=== PATIENT | female | born 1965 | race Caucasian/White ===

== ENCOUNTER → 2019-04-16 | Day surgery (SDC) | payer OTHER ==
[~2019-04-16] MED LIST: LIDOCAINE 1% 10 ML VIAL INJ ONE; PROPOFOL 200 MG/20 ML VIAL IV ONE
[2019-04-16] MEDS: LACTATED RINGERS 1,000 ML ONE (08:45)
--- NOTE | 2019-04-16 13:14 | OP ---
DATE OF PROCEDURE: 04/16/19 PREOPERATIVE DIAGNOSIS: 1. Need for screening colonoscopy. POSTOPERATIVE DIAGNOSIS: PROCEDURE: 1. Colonoscopy with polypectomies. SURGEON: Sony Guadalupe MD ANESTHESIA: General. PROCEDURE: After all risks and benefits were described and the patient having been evaluated in the office, she was brought to the Operating Suite. General anesthesia was induced. She was placed in the left lateral position comfortably and the colonoscopy began. We immediately found a polyp in the sigmoid colon. This was approximately 2.5 mm. This was excised with the forceps completely. We proceeded and saw a couple of more polyps in a really sharp corner in the mid-sigmoid, but advanced to the mid-descending. I could not get into the terminal ileum. We had a small loop that we positioned the patient multiple times, but saw the very terminal ileum and noticed no significant polyps and there were none along the entire right side and transverse colon. As we withdrew, again we encountered the polyps on the left side. Additional biopsies were taken. At 30 cm, a 3 mm polyp was taken. Bottle 3 and 4 had 2 polyps. In bottle 3 and 4, the polyps about 20 cm, each of them measuring around 3 mm. The fifth biopsy was about 18 cm, again, about a 2.5 mm polyp. Bottle 6, around 17 cm was a 2 cm polyp that appeared adenomatous and was excised completely and two small benign appearing rectal polyps were removed in bottle 7. There was no significant bleeding. Overall, she tolerated the procedure well. We will await the results and see her in followup. #[id number] cc: MD ALESSANDRA Watts
[2019-04-16 13:22] VITALS: BP 145/58; TEMP 97; O2SAT 98
== END ==
LOC: AMB 05:41
PROVIDERS: ATTEND Surgery
DX: Z12.11 Encounter for screening for malignant neoplasm of colon (principal); K63.5 Polyp of colon; K62.1 Rectal polyp; F17.210 Nicotine dependence, cigarettes, uncomplicated; K59.00 Constipation, unspecified; F41.9 Anxiety disorder, unspecified; F32.9 Major depressive disorder, single episode, unspecified; Z88.0 Allergy status to penicillin; Z79.899 Other long term (current) drug therapy
CPT/HCPCS: 00812; 45380; 88305; J3490; J7120